=== PATIENT | male | born 1985 | race African-American/Black ===

== ENCOUNTER 2017-05-17 21:04 | Emergency (ER) | payer MEDICAID ==
[~2017-05-17] VITALS: Ht 188 cm; Wt 74.8 kg
[2017-05-17] MEDS ORDERED: SILVER SULFADIAZINE 1% CREAM 25GM TOP ONE (23:15)
[2017-05-17 23:35] VITALS: BP 132/80
== END 2017-05-18 00:35 | disposition home or self-care (01) ==
LOC: ER 21:17
DX: S81.802A Unspecified open wound, left lower leg, initial encounter (principal); L08.9 Local infection of the skin and subcutaneous tissue, unspecified; L03.116 Cellulitis of left lower limb; S81.801A Unspecified open wound, right lower leg, initial encounter; F31.9 Bipolar disorder, unspecified; W22.8XXA Striking against or struck by other objects, initial encounter; Y93.89 Activity, other specified; Y92.89 Other specified places as the place of occurrence of the external cause; Y99.8 Other external cause status
CPT/HCPCS: 73590; 99284; X7700; Z7610

== ENCOUNTER 2017-07-24 14:57 | Emergency (ER) | payer MEDICAID ==
[~2017-07-24] VITALS: Ht 188 cm; Wt 73.0 kg
[2017-07-24 15:32] VITALS: BP 130/85
== END 2017-07-24 20:44 | disposition left against medical advice (07) ==
LOC: ER 14:57
DX: R21 Rash and other nonspecific skin eruption (principal); J45.909 Unspecified asthma, uncomplicated; F17.200 Nicotine dependence, unspecified, uncomplicated
CPT/HCPCS: 99281